=== PATIENT | male | born 1995 | race Caucasian/White ===

== ENCOUNTER 2017-01-22 05:47 | Emergency (ER) | payer OTHER ==
--- NOTE | ~2017-01-22 | CT71 ---
[facility] A Service of [facility] RADIOLOGY TEXT RESULTS PATIENT: MARCIANO JEFFERY LOCATION: [facility] : [birth year] UNIT #: [id number] AGE: [address]: Betsy Dubois MD SEX: M ORDER DR: [id number] [facility]. [place], [place] [address] [id number] MR#: [id number] Acc #: [id number] NAME: MARCIANO JEFFERY : 1995 SEX: M STUDY DATE/TIME: 01/22/2017 6:17 UNIT: [facility] ROOM: STUDY DESCRIPTION: CT Head Wo Contrast Attending Physician: Betsy Dubois M.D. Ordering Physician: Betsy Dubois M.D. Primary Care Physician: No Primary Care Physician MEDICAL IMAGING REPORT This report is preliminary unless electronic signature is present EXAM CT scan of the head without contrast. INDICATION [place] by EMS on railroad track with persistent headache. Patient fell and hit forehead. TECHNIQUE Axial noncontrast images were obtained from the skull base to the vertex. This CT exam was performed with one or more of the following radiation dose reduction techniques: automatic exposure control, adjustment of mA and/or kV according to patient size, and iterative reconstruction. FINDINGS Ventricular size and configuration are normal. There is no evidence of acute infarct or hemorrhage. There are no extra-axial fluid collections. No mass lesion or mass effect is seen. There are no skull fractures. IMPRESSION Normal noncontrast head CT. Dictated by... Ede Casanova M.D. THIS IS AN ELECTRONICALLY VERIFIED REPORT Ede Casanova M.D. at 01/22/2017 2:34 PM ALMA/satish TD: 01/22/2017 13:07 [facility] A Service of [facility] RADIOLOGY TEXT RESULTS PATIENT: MARCIANO JEFFERY LOCATION: [facility] : [birth year] UNIT #: [id number] AGE: [address]: Betsy Dubois MD SEX: M ORDER DR: JOB #: [id number] MEDICAL IMAGING REPORT Page 1 of 1 COPY
[2017-01-22 06:48] LABS: BASOPHIL# 0.1 X10e3 (0-0.3); BASOPHIL% 0.9 % (0-2.5); EOSINOPHIL# 0.1 X10e3 (0-0.7); EOSINOPHIL% 1.2 % (0.0-7.0); HEMATOCRIT 41.9 % (38.0-50.0); HEMOGLOBIN 14.1 gm/dL (13.0-16.0); LYMPHOCYTE# 1.7 X10e3 (1.0-3.5); LYMPHOCYTE% 29.3 % (17.0-45.0); MEAN CELL VOLUME 85.1 FL (83-96); MEAN CORPUSCULAR HEMOGLOBIN 28.7 PG (28-34); MEAN CORPUSCULAR HGB CONC 33.8 g/dL (30-36); MEAN PLATELET VOLUME 7.6 FL (6.5-11.5); MONOCYTE# 1.1 X10e3 (0-1.0); MONOCYTE% 18.2 % (3.0-12.0); NEUTROPHIL% 50.4 % (40-75); PLATELET COUNT 236 X10e3 (140-420); RED BLOOD COUNT 4.92 X10e (3.90-5.60); RED CELL DISTRIBUTION WIDTH 13.8 % (11.0-15.5); WHITE BLOOD COUNT 5.9 X10e3 (4.0-10.5)
[2017-01-22 06:58] LABS: BLOOD UREA NITROGEN 14 mg/dL (9-23); CALCIUM SERUM 9.1 mg/dL (8.4-10.2); CARBON DIOXIDE 25 mmol/L (22-31); CHLORIDE 105 mmol/L (100-111); GLOM FILT RATE Estimated 106.4 mL/min (>60); GLUCOSE FASTING 139 mg/dL (70-110); POTASSIUM 3.4 mmol/L (3.5-5.1); SODIUM 141 mmol/L (135-145)
[2017-01-22 07:01] LABS: DIFF IND NO
[2017-01-22 07:03] LABS: ALCOHOL BLOOD <5 mg/dL (0)
== END 2017-01-22 08:35 | disposition home or self-care (01) ==
LOC: CED 05:47
PROVIDERS: Student in an Organized Health Care Education/Training Program
DX: S00.83XA Contusion of other part of head, initial encounter (principal); Y04.0XXA Assault by unarmed brawl or fight, initial encounter; Y93.89 Activity, other specified; Y92.488 Other paved roadways as the place of occurrence of the external cause
CPT/HCPCS: 36415; 70450; 80048; 85025; 86592; 96372; 99284; G0480; J0561

== ENCOUNTER 2017-02-06 21:29 | Inpatient (IN) | payer OTHER ==
--- NOTE | ~2017-02-06 | DS ---
Unit #: [id number] #: [id number] Patient: MARCIANO JEFFERY [id number] [facility] [address] [place] [address] [id number] MR#: [id number] NAME: MARCIANO JEFFERY ROOM: P208 Age: 21 Sex: M Admission Date: 02/07/2017 : 1995 Discharge Date: 02/08/2017 Attending Physician: Jae Valdez M.D. Primary Care Physician: Primary Care Physician No DISCHARGE SUMMARY REASON FOR ADMISSION Depression. DIAGNOSTIC STUDIES LABORATORY RESULTS: Remarkable for urine drug screen positive for amphetamine and marijuana. HOSPITAL COURSE The patient was admitted to inpatient unit on . The patient was treated with group therapy, individual therapy, and medication management. The patient was responsive to treatment, able to contract for safety. Subsequently, the patient was discharged with a plan to follow up in outpatient program. DISCHARGE MEDICATIONS Celexa 20 mg daily for depression, trazodone 50 mg at bedtime for insomnia, and Vistaril 25 mg t.i.d. for anxiety. DISCHARGE DIAGNOSES Psychiatric: Mood disorder, not otherwise specified, F32.9; amphetamine use disorder, severe, F15.20; cannabis abuse disorder, moderate, F12.20. Secondary diagnosis: Deferred. Medical diagnosis: None. Stressors: Psychosocial stressors. DISCHARGE INSTRUCTIONS The patient to follow up in outpatient clinic as per public health social worker. CONDITION ON DISCHARGE The patient was pleasant and cooperative. Denied any psychotic symptom or any suicidal ideation. PROGNOSIS Guarded. DIET AND ACTIVITY As tolerated. Dictated by... Unit #: [id number] #: [id number] Patient: MARCIANO JEFFERY Jaxson Salazar/meena TD: 02/08/2017 17:51 JOB #: [id number] DISCHARGE SUMMARY Page 1 of 1 X Jae Valdez MD X DISCHARGE SUMMARY
--- NOTE | ~2017-02-06 | PA ---
Unit #: [id number] #: [id number] Patient: GRIFFIN JEFFERY [id number] [place] [address] [id number] MR#: [id number] NAME: GRIFFIN JEFFERY ROOM: P208 Age: 21 Sex: M Admission Date: 02/07/2017 : 1995 Date of Assessment: Attending Physician: Jae Valdez M.D. Admitting Physician: Jae Valdez M.D. Primary Care Physician: Primary Care Physician No PSYCHIATRIC ASSESSMENT INFORMANT(S) Patient, reliability fair. Chart, reliability good. CHIEF COMPLAINT Suicidal ideation, depression. HISTORY OF PRESENT ILLNESS Mr. Griffin Jeffery is a 21-year-old male, presented with the above mentioned complaint. The patient was previously admitted at [facility] for aggression. The patient is currently homeless. The patient reported currently off from all his medication, reported having suicidal ideation, with a plan to overdose or hang himself. The patient reported using methamphetamine daily. Stopped taking his psychiatric medication, reported intentional overdose last week. The patient reported last use of amphetamine was on 02/05/17. The patient reported half a gram of IV amphetamine, reported life stressors such as homelessness, unemployment, recent suicidal ideation. The patient reported auditory and visual hallucinations after started amphetamine, needing inpatient admitted, at this time for psychiatric stabilization. PAST PSYCHIATRIC HISTORY Remarkable for history of previous treatment at [facility]. FAMILY HISTORY/SOCIAL HISTORY Poor support system, currently homeless, no known history of any abuse, no legal charges. MEDICAL HISTORY Unremarkable for any chronic medical illness. MUSCULOSKELETAL: Muscle strength and tone, no atrophy, no abnormal movement, gait normal. MEDICATION HISTORY None. ALLERGIES No known drug allergies. SUBSTANCE ABUSE HISTORY The patient reported tobacco use, age of onset 12, marijuana age of onset Unit #: [id number] #: [id number] Patient: GRIFFIN JEFFERY 13, amphetamine age of onset 17, benzodiazepines age of onset 15. The patient reported longest time of sobriety one day. Reported no history of blackout, HIV, hepatitis, withdrawal, or IV drug use. REVIEW OF SYSTEMS HEENT: Eyes: Clear. Ears, nose, mouth, and throat: Clear. CARDIOVASCULAR and RESPIRATORY: Unremarkable. GASTROINTESTINAL AND GENITOURINARY: Unremarkable. MUSCULOSKELETAL: Muscle strength and tone, no atrophy or abnormal movement. Gait: normal. SKIN, LYMPH NODE, NEUROLOGIC, ENDOCRINE, HEMATOLOGIC, ALLERGIC, AND IMMUNOLOGIC: Unremarkable. MENTAL STATUS EXAM CONSTITUTIONAL: Measurement of vital signs: Temperature 98.3, pulse 83, respirations 16, oxygen saturation ___, and blood pressure 107/49. HEIGHT: 5 feet 3 inches. WEIGHT: 115 pounds. General appearance: Patient dressed casually. The patient did not show any facial deformity. MUSCULOSKELETAL: Please see above. PSYCHIATRIC EXAMINATION Description of speech, regular rate, normal volume, normal articulation, coherent. Description of thought process, goal-directed. Description of association, intact. Description of abnormal psychotic thinking, the patient denied any psychosis, but suicidal ideation, denied any homicidal ideation, substance abuse. Description of the patient's judgment concerning every day activity poor. Social situation poor. Concerning psychiatric condition poor. COMPLETE MENTAL STATUS EXAMINATION Oriented to time, place, and person. Recent and remote memory poor. Attention span concentration fair. Language, able to name objects and repeat phrases. Fund of knowledge, aware of current events and past history. Vocabulary intact. Mood and affect, sad and depressed. Insight and judgment, [id number]. ASSETS The patient is articulate, able to take care of his activities of daily living. LIABILITIES History of depression, substance abuse. ADMITTING DIAGNOSES [place] I: Mood disorder, NOS, F32.9. Rule out major depressive disorder, recurrent, F33.2. Amphetamine use disorder, severe, F15.20. [place] II: Deferred. [place] III: None. [place] IV: Psychosocial stressors. [place] V: PSYCHIATRIC PLAN/TREATMENT GOALS Unit #: [id number] #: [id number] Patient: GRIFFIN JEFFERY 1. Advised to admit patient on the inpatient unit. Provide safe, supportive, and structured environment. 2. Order labs, CBC, CMP, UA, UDS. 3. Precaution for self harm. 4. The patient to do all the programming on the inpatient unit, plan to consider SSRI, such as Celexa. 5. The patient to attend on the programming on the unit including, group therapy, individual therapy, chemical dependency group. 6. Treatment goal to attain euthymic mood, gain insight into his problem, and learn coping skills. DISCHARGE PLANNING Plan to stabilize the patient and continue to followup in outpatient programming. ESTIMATED LENGTH OF STAY [id number] days. Dictated by... Jae Valdez M.D. ADRIANA/lakia TD: 02/08/2017 05:26 JOB #: [id number] PSYCHIATRIC ASSESSMENT Page 1 of 1 X Jae Valdez MD X PSYCHIATRIC ASSESSMENT
--- NOTE | ~2017-02-06 | HP ---
Unit #: [id number] #: [id number] Patient: GRIFFIN JEFFERY [id number] [place] [address] [id number] MR#: [id number] NAME: GRIFFIN JEFFERY ROOM: P208 Age: 21 Sex: M Admission Date: 02/07/2017 : 1995 Attending Physician: Jae Valdez M.D. Admitting Physician: Jae Valdez M.D. Primary Care Physician: Primary Care Physician No HISTORY AND PHYSICAL HISTORY OF PRESENT ILLNESS Griffin is a 21 year old, admitted to [address] [place] [address] because of his drug use. He uses meth. He reports auditory hallucinations. PAST MEDICAL HISTORY 1. History of illicit substance abuse to include methamphetamine. 2. Hypothyroidism. PAST SURGICAL HISTORY Nothing reported. ALLERGIES No known drug allergies. SOCIAL HISTORY Smokes one pack per day, denies alcohol, admits to using marijuana frequently, and shooting methamphetamine. FAMILY HISTORY Medically noncontributory. REVIEW OF SYSTEMS CONSTITUTIONAL: No fever or chills. HEENT: Denies any sore throat, ear pain or runny nose. CARDIOVASCULAR: Denies chest pain, irregular heart rhythm or palpitations. CHEST: Denies shortness of breath or cough. No hemoptysis. GASTROINTESTINAL: Denies nausea, vomiting, diarrhea or chronic constipation. ENDOCRINE: Denies history of increased thirst or urination. No recent significant weight loss or gain. GENITOURINARY: Denies dysuria, frequency, or hematuria. SKIN: Denies any rashes. HEMATOLOGIC: Denies history of increased bleeding or bruising. MUSCULOSKELETAL: Denies any hot, swollen joints. No generalized muscle pain. NEUROLOGIC: Denies problems with vision or speech. No frequent, severe headaches. No numbness, tingling or weakness in any extremities. Denies loss of bladder or bowel control. CURRENT MEDICATIONS 1. Trazodone 75 mg q.h.s. 2. Celexa 20 mg q.h.s. 3. Vistaril 25 mg t.i.d. Unit #: [id number] #: [id number] Patient: GRIFFIN JEFFERY 4. Nicotine patch 14 mg daily 5. Milk of magnesia p.r.n. 6. Maalox p.r.n. 7. Tylenol p.r.n. PHYSICAL EXAMINATION GENERAL: Alert, well-nourished, no apparent distress. VITAL SIGNS: Blood pressure 110/50, heart rate 80, respirations 16, and temperature 98.6. WEIGHT: 115 pounds. HEIGHT: 5 feet 3 inches. SKIN: Warm and dry without rash or lesion. HEENT: Normocephalic. TMs not viewed. Oral and nasal passages clear. Conjunctivae clear. PERRLA. EOMs intact. NECK: Supple without lymphadenopathy or thyromegaly. HEART: Regular rate and rhythm without murmur. LUNGS: Clear. ABDOMEN: Soft, nontender. : Not done. EXTREMITIES: No evidence of cyanosis, clubbing or edema. Moves all without focal deficit. NEUROLOGICAL: Grossly within normal limits. Cranial Nerves: II: Visual stroud are intact. III, IV AND : Extraocular movements are intact. Pupils are equal, round and reactive to light. V: Facial sensation is grossly normal. VII: Facial movements and expression are normal. VIII: Auditory acuity grossly intact. IX, X: Uvula is midline. Phonation is normal. XI: Patient shrugs shoulders and turns head normally. XII: Tongue protrudes in the midline. Sensory and Motor Function: Sensory and motor sensation is grossly normal. Motor: moves all extremities well. Coordination: Gait is normal. Deep Tendon Reflexes: Intact. IMPRESSION 1. Psychiatric admission. 2. History of illicit substance abuse. 3. Hypothyroidism. He is admitted on no thyroid medication. RECOMMENDATIONS Psychiatric, per psychiatrist. MEDICAL 1. I see no contraindications to participating in facility's activities. 2. Check a TSH. MEDICAL PROGNOSIS Good. MEDICAL CONDITION Stable. Dictated by... Kenia Kong P.A.-C. for Jaxson Chatterjee/lakia Unit #: [id number] #: [id number] Patient: GRIFFIN JEFFERY TD: 02/08/2017 08:03 JOB #: [id number] HISTORY AND PHYSICAL Page 1 of 1 X Kenia Kong HISTORY AND PHYSICAL
[2017-02-07 09:42] LABS: URINE APPEARANCE TURBID; URINE BILIRUBIN NEG (NEG); URINE BLOOD TRACE (NEG); URINE COLOR YELLOW; URINE GLUCOSE NEG (NEG); URINE KETONE NEG (NEG); URINE LEUKOCYTE ESTERASE NEG (NEG); URINE NITRATE NEG (NEG); URINE PH 5.5 (5-8); URINE PROTEIN NEG (NEG)
[2017-02-07 09:45] LABS: U HYALINE CASTS AUWI 0-2 /[LPF]; URINE BACTERIA AUWI NEG (NEGATIVE); URINE SQUAMOUS EPITHELIAL CELL NONE SEEN /[HPF]
[2017-02-07 09:50] LABS: BASOPHIL# 0.1 X10e3 (0-0.3); BASOPHIL% 0.8 % (0-2.5); EOSINOPHIL# 0.3 X10e3 (0-0.7); EOSINOPHIL% 2.7 % (0.0-7.0); HEMATOCRIT 42.1 % (38.0-50.0); HEMOGLOBIN 14.3 gm/dL (13.0-16.0); LYMPHOCYTE# 3.4 X10e3 (1.0-3.5); LYMPHOCYTE% 35.1 % (17.0-45.0); MEAN CELL VOLUME 85.3 FL (83-96); MEAN CORPUSCULAR HEMOGLOBIN 28.9 PG (28-34); MEAN CORPUSCULAR HGB CONC 33.9 g/dL (30-36); MEAN PLATELET VOLUME 7.4 FL (6.5-11.5); MONOCYTE# 0.6 X10e3 (0-1.0); MONOCYTE% 6.1 % (3.0-12.0); NEUTROPHIL# 5.3 X10e3 (1.5-7.1); NEUTROPHIL% 55.3 % (40-75); PLATELET COUNT 380 X10e3 (140-420); RED BLOOD COUNT 4.94 X10e (3.90-5.60); RED CELL DISTRIBUTION WIDTH 13.7 % (11.0-15.5); WHITE BLOOD COUNT 9.6 X10e3 (4.0-10.5)
[2017-02-07 09:54] LABS: DIFF IND NO
[2017-02-07 10:09] LABS: ALBUMIN SERUM 3.4 g/dL (3.5-5.0); BILIRUBIN,TOTAL 0.6 mg/dL (0.2-2.0); BUN/CREATININE RATIO 13.75; CALCIUM SERUM 9.1 mg/dL (8.4-10.2); CREATININE SERUM 0.8 mg/dL (0.6-1.4); GLOM FILT RATE Estimated 126.9 mL/min (>60); POTASSIUM 3.9 mmol/L (3.5-5.1); PROTEIN TOTAL SERUM 6.2 g/dL (6.0-8.3)
[2017-02-07 10:45] LABS: AMPHETAMINE POS (NEG); BARBITURATES NEG (NEG); BENZODIAZEPINES NEG (NEG); COCAINE NEG (NEG); MARIJUANA POS (NEG); OPIATES NEG (NEG); TRICYCLIC ANTIDEPRESSANTS NEG (NEG); U METHADONE NEG (NEG)
== END 2017-02-08 12:55 | disposition home or self-care (01) | DRG 885 ==
LOC: P2S 02-07 00:53
PROVIDERS: Psychiatry & Neurology Psychiatry
DX: F39 Unspecified mood [affective] disorder (principal); F33.2 Major depressive disorder, recurrent severe without psychotic features; R45.851 Suicidal ideations; F15.20 Other stimulant dependence, uncomplicated; E03.9 Hypothyroidism, unspecified; F17.210 Nicotine dependence, cigarettes, uncomplicated
CPT/HCPCS: 80053; 80307; 81003; 85025